=== PATIENT | male | born 2000 ===

== ENCOUNTER 2019-04-04 15:41 | Emergency (ER) | payer OTHER, MEDICAID ==
[~2019-04-04] VITALS: Ht 157.5 cm; Wt 60.0 kg
[2019-04-04 15:45] VITALS: BP 132/86
[2019-04-04] MEDS ORDERED: TETANUS, DIPHTHERIA, PERTUSSIS VAC/PF 0.5ML (>7YR OLD) IM ONE (16:30)
== END 2019-04-04 17:28 | disposition home or self-care (01) ==
LOC: ER 15:41
DX: S01.81XA Laceration without foreign body of other part of head, initial encounter (principal); X58.XXXA Exposure to other specified factors, initial encounter; Y93.89 Activity, other specified; Y92.89 Other specified places as the place of occurrence of the external cause; Y99.8 Other external cause status
CPT/HCPCS: 12011; 90471; 90715; 99283; A4217; Z7610